=== PATIENT | female | born 1980 | race Caucasian/White ===

== ENCOUNTER 2016-09-21 19:25 | Emergency (ER) | payer BC ==
[2016-09-21 19:42] VITALS: BP 143/80
[2016-09-21] MEDS ORDERED: Sodium Chloride 0.9% 10 ML Syringe FLUSH PRN (19:48)
[2016-09-21] MEDS ORDERED: diphenhydrAMINE 50 MG/ML SDV IVPUSH ONE (19:48)
[2016-09-21] MEDS ORDERED: Metoclopramide 10 MG/2 ML SDV IVPUSH ONE (19:49)
--- NOTE | 2016-09-21 20:35 | CT ---
Head CT Technique: Multiple axial sections through the brain were obtained. Intravenous contrast was not utilized. Comparison: No previous intracranial imaging is available. Findings: Slight atherosclerotic calcification is seen within the left vertebral vessel. Ventricles along with basal cisterns and sulci over the convexities are within normal limits for the patient's age. No abnormal parenchymal densities are seen. No evidence of intracranial hemorrhage. No midline shift or mass effect is seen. Bone window settings were reviewed which show the visualized sinuses to appear clear. No acute calvarial abnormality is appreciated. Impression: 1. No acute abnormality is identified on noncontrast head CT exam. Incidental finding of atherosclerotic calcification within the left vertebral vessel. Diagnostic code #2
[2016-09-21] MEDS ORDERED: Haloperidol Lactate 5 MG/ML SDV IVPUSH ONE (20:55)
[2016-09-21] MEDS ORDERED: Ketorolac 30 MG/ML SDV IVPUSH SCH (21:00)
--- NOTE | 2016-09-21 21:44 | EDM.PDOC ---
ED HPI GENERAL MEDICAL PROBLEM - General Chief Complaint: Neurological Problem Stated Complaint: HEADACHE/PUPIL DIALATED LEFT SIDE Time Seen by Provider: 09/21/16 19:31 Source of Information: Reports: Patient, RN Notes Reviewed - History of Present Illness INITIAL COMMENTS - FREE TEXT/NARRATIVE: Patient is a 36-year-old lady that comes in with headache. She has had frontal and left-sided headache for about a week. It became quite if worse this late afternoon early evening. Discomfort continues to be left frontal with some radiation to the left posterior head. He has had throbbing with this and the pain did become more severe this evening despite Tylenol a few hours ago. She presented to [facility]. They were concerned about increased severity of headache and therefore referred here for possible CT scan. She was not given any meds at the clinic. She states the headache now is somewhat better but continues to be moderately uncomfortable. She has had some nausea with this. She has not been actively vomiting. No sinus problems, fever or chills. He did have some visual blurring yesterday but vision has been totally normal today. Left Head Pain Score (Numeric/FACES): 9 - Related Data Allergies Allergy/AdvReac Type Severity Reaction Status Date / Time No Known Allergies Allergy Verified 09/21/16 20:09 Past Medical History - Past Health History Medical/Surgical History: Denies Medical/Surgical History Social & Family History - Tobacco Use Smoking Status *Q: Never Smoker - Caffeine Use Caffeine Use: Reports: None - Recreational Drug Use Recreational Drug Use: No ED ROS GENERAL - Review of Systems Review Of Systems: See Below HEENT: Denies: Ear Pain, Sinus Problem, Throat Pain Respiratory: Denies: Shortness of Breath Cardiovascular: Denies: Chest Pain GI/Abdominal: Reports: Nausea. Denies: Abdominal Pain, Vomiting Musculoskeletal: Denies: Neck Pain, Shoulder Pain, Back Pain Skin: Reports: No Symptoms Neurological: Reports: Headache, Numbness (Occasional bilateral upper extremity but none at this time). Denies: Dizziness ED EXAM, NEURO - Physical Exam Exam: See Below General Appearance: Alert, Mild Distress Eye Exam: Bilateral Eye: PERRL Throat/Mouth: Normal Inspection Head Exam: Atraumatic. No: Facial Swelling Neck: Supple, Full Range of Motion Respiratory/Chest: No Respiratory Distress, No Accessory Muscle Use Cardiovascular: Regular Rate, Rhythm Neurological: Alert, No Motor/Sensory Deficits, Other (Finger to nose testing normal) Back Exam: Normal Inspection Psychiatric: Normal Affect, Normal Mood Skin Exam: Warm, Dry, Normal Color Course - Vital Signs Last Recorded V/S: Last Vital Signs Temp 99 F 09/21/16 19:34 Pulse 96 09/21/16 19:34 Resp 16 09/21/16 19:34 BP 143/80 H 09/21/16 19:34 Pulse Ox 98 09/21/16 19:34 - Orders/Labs/Meds Orders: Active Orders 24 hr Category Date Time Status Peripheral IV Care [RC] . DIRECTED Care 09/21/16 19:48 Active Ketorolac [Toradol] Med 09/21/16 21:00 Active 30 mg IVPUSH ONETIME Sodium Chloride 0.9% [Saline Flush] Med 09/21/16 19:48 Active 10 ml FLUSH ASDIRECTED PRN Peripheral IV Insertion Adult [OM.PC] Stat Oth 09/21/16 19:48 Ordered Medication Orders Ketorolac Tromethamine (Toradol) 30 mg IVPUSH ONETIME LEAH Last Admin: 09/21/16 21:17 Dose: 30 mg Sodium Chloride (Saline Flush) 10 ml FLUSH ASDIRECTED PRN PRN Reason: Keep Vein Open Last Admin: 09/21/16 20:08 Dose: 10 ml Meds: Medications Generic Name Dose Route Start Last Admin Trade Name Freq PRN Reason Stop Dose Admin Ketorolac Tromethamine 30 mg 09/21/16 21:00 09/21/16 21:17 Toradol IVPUSH 30 mg ONETIME LEAH Administration Sodium Chloride 10 ml 09/21/16 19:48 09/21/16 20:08 Saline Flush FLUSH 10 ml ASDIRECTED PRN Administration Keep Vein Open Discontinued Medications Generic Name Dose Route Start Last Admin Trade Name Freq PRN Reason Stop Dose Admin Diphenhydramine HCl 25 mg 09/21/16 19:48 09/21/16 20:07 Benadryl IVPUSH 09/21/16 19:49 25 mg ONETIME ONE Administration Haloperidol Lactate 5 mg 09/21/16 20:55 09/21/16 21:19 Haldol IVPUSH 09/21/16 20:56 5 mg ONETIME ONE Administration Metoclopramide HCl 5 mg 09/21/16 19:49 09/21/16 20:05 Reglan IVPUSH 09/21/16 19:50 5 mg ONETIME ONE Administration - Re-Assessments/Exams Free Text/Narrative Re-Assessment/Exam: 09/21/16 21:22 CT of head is normal, see radiology report for details, treated initially with Reglan 5 mg IV Benadryl 25 mg IV. That has given some but not complete relief we 'll follow that now with Toradol 30 mg IV, Haldol 5 mg IV. Departure - Departure Time of Disposition: 21:59 Disposition: Home, Self-Care 01 Condition: fair Clinical Impression: Headache Qualifiers: Headache type: unspecified Headache chronicity pattern: acute headache Intractability: not intractable Qualified Code(s): R51 - Headache - Discharge Information Forms: ED Department Discharge Additional Instructions: You've been given multiple sedative meds while here in the ED, do not drive until 7 AM or sedation has resolved, you may continue to alternate Tylenol and ibuprofen as needed, followup clinic as needed, return to ED as needed - My Orders Last 24 Hours: My Active Orders 09/21/16 19:48 Peripheral IV Care [RC] . DIRECTED Sodium Chloride 0.9% [Saline Flush] 10 ml FLUSH ASDIRECTED PRN Peripheral IV Insertion Adult [OM.PC] Stat 09/21/16 21:00 Ketorolac [Toradol] 30 mg IVPUSH ONETIME - Assessment/Plan Last 24 Hours: My Active Orders 09/21/16 19:48 Peripheral IV Care [RC] . DIRECTED Sodium Chloride 0.9% [Saline Flush] 10 ml FLUSH ASDIRECTED PRN Peripheral IV Insertion Adult [OM.PC] Stat 09/21/16 21:00 Ketorolac [Toradol] 30 mg IVPUSH ONETIME
== END 2016-09-21 22:03 | disposition home or self-care (01) ==
LOC: JD.ED 19:25
DX: R51 Headache (principal)
CPT/HCPCS: 70450; 99284; J1200; J1630; J1885; J2765; J7050; 96374; 96375